=== PATIENT | female | born 1990 | race Hispanic/Latino ===

== ENCOUNTER 2017-05-31 15:32 | Emergency (ER) | payer MEDICARE ==
--- NOTE | 2017-05-31 17:00 | Emergency Department Report ---
HPI - General Chief Complaint: Seizure Time Seen by Provider: 05/31/17 16:42 - HPI HPI: Room 24 The patient is a 26-year-old female presented with the chief complaint seizures. The mother states patient has a history of seizures and cerebral palsy was admitted at [facility] 05/28/2017 through 05/29/2017. The mother states the patient has 6-7 seizures yesterday and then today from 11: 45 through 13:00 patient continued to have seizures. The mother states the patient's seizures consist of her "kicking and biting mixed with episodes of decreased responsiveness." The patient cries out at times and complains of a headache. The patient has a history of cerebral palsy has limited communication but does acknowledge she has a headache. Patient denies any other forms of pain. This morning the mother states patient had an episode of vomiting and one episode of diarrhea. Location: [facility], see above Duration: [See above] Quality: "Seizure" Severity: Moderate Modifying factors: [see above] Context: [see above] Mode of transportation: [not driving] ED Past Medical Hx - Past Medical History Previous Medical History?: Yes Additional medical history: cerebral palsy, seizures - Surgical History Past Surgical History?: No Hx Cholecystectomy: Yes - Family History Family history: no significant - Social History Smoking Status: Never Smoker Substance Use Type: None - Medications Home Medications: Home Medications Medication Instructions Recorded Confirmed Last Taken Type Benztropine [Cogentin] 1 mg PO BID 05/31/17 05/31/17 Unknown History Vortioxetine Hydrobromide 20 mg PO QDAY 05/31/17 05/31/17 Unknown History [Trintellix] Zonisamide (Nf) [Zonegran (Nf)] 400 mg PO QAM 05/31/17 05/31/17 Unknown History Zonisamide (Nf) [Zonegran (Nf)] 500 mg PO QPM 05/31/17 05/31/17 Unknown History clonazePAM [ Klonopin] 0.5 mg PO BID #6 tab 05/31/17 Unknown Rx lamoTRIgine [LaMICtal] 300 mg PO BID 05/31/17 05/31/17 Unknown History ED Review of Systems ROS: Stated complaint: SEIZURE ACTIVITY Other details as noted in HPI Eyes: denies: eye pain ENT: denies: ear pain Cardiovascular: denies: chest pain Gastrointestinal: nausea, vomiting, diarrhea. denies: abdominal pain Genitourinary: denies: dysuria Musculoskeletal: denies: back pain Neurological: headache Physical Exam - Physical Exam Vital Signs: Vital Signs 05/31/17 15:52 Pulse Rate 102 H Respiratory 25 H Rate Blood Pressure 103/60 O2 Sat by Pulse 100 Oximetry Physical Exam: GENERAL: The patient is a well-nourished female lying on stretcher not appearing to be in acute distress HEENT: Normocephalic. Atraumatic. Extraocular motions are intact. Patient has moist mucous membranes. NECK: Trachea midline CHEST/LUNGS: Clear to auscultation. There is no respiratory distress noted. HEART/CARDIOVASCULAR: Regular. There is no tachycardia. There is no gallop rub or murmur. ABDOMEN: Abdomen is soft, nontender. Patient has normal bowel sounds. There is no abdominal distention. SKIN: There is no rash. There is no edema. There is no diaphoresis. NEURO: The patient is awake and alert. The patient is cooperative. Cranial nerves II through XII grossly intact. MUSCULOSKELETAL: There is no evidence of acute injury. ED Course Vital Signs 05/31/17 15:52 Pulse Rate 102 H Respiratory 25 H Rate Blood Pressure 103/60 O2 Sat by Pulse 100 Oximetry - Consultations Consultation #1: 05/31/17 18:05 Dr. Gan paged 05/31/17 20:19 No call back [address] Dr[address] Gan Consultation #2: 05/31/17 20:[address] Lind (patient's neuropsychiatrist)-recommends checking a Zonisamide level and he or the patient's neurologist will follow-up with the results. Recommends given Klonopin every 8 hours for 3 days. ED Medical Decision Making - Lab Data Result diagrams: 05/31/17 16:19 05/31/17 16:19 Laboratory Tests 05/31/17 05/31/17 05/31/17 16:19 16:19 16:19 WBC 8.7 RBC 4.18 Hgb 13.5 Hct 40.1 MCV 96 MCH 32 MCHC 34 RDW 13.1 L Plt Count 288 Lymph % (Auto) 32.0 [place] % (Auto) 5.3 Eos % (Auto) 3.3 Baso % (Auto) 0.5 Lymph # 2.8 [place] # 0.5 Eos # 0.3 Baso # 0.0 Seg Neutrophils % 58.9 Seg Neutrophils # 5.1 Sodium 140 Potassium 3.8 Chloride 106.1 Carbon Dioxide 19 L Anion Gap 19 BUN 13 Creatinine 0.5 L Estimated GFR > 60 BUN/Creatinine Ratio 26 Glucose 101 H Calcium 8.8 Magnesium Total Bilirubin 0.20 Direct Bilirubin < 0.2 Indirect Bilirubin 0.0 AST 19 ALT 20 Alkaline Phosphatase 94 Total Creatine Kinase 53 Total Protein 6.2 L Albumin 4.4 Albumin/Globulin Ratio 2.4 05/31/17 16:19 WBC RBC Hgb Hct MCV MCH MCHC RDW Plt Count Lymph % (Auto) [place] % (Auto) Eos % (Auto) Baso % (Auto) Lymph # [place] # Eos # Baso # Seg Neutrophils % Seg Neutrophils # Sodium Potassium Chloride Carbon Dioxide Anion Gap BUN Creatinine Estimated GFR BUN/Creatinine Ratio Glucose Calcium Magnesium 2.00 Total Bilirubin Direct Bilirubin Indirect Bilirubin AST ALT Alkaline Phosphatase Total Creatine Kinase Total Protein Albumin Albumin/Globulin Ratio - EKG Data -: EKG Interpreted by Dc EKG shows normal: sinus rhythm Rate: normal - EKG Data When compared to previous EKG there are: previous EKG unavailable Interpretation: other (no ischemic changes seen) - Radiology Data Radiology results: report reviewed (CT head), image reviewed (CT head) FINAL REPORT EXAM: CT HEAD/BRAIN WO CON HISTORY: repeated seizures per mother, headache TECHNIQUE: Standard unenhanced CT of the head at 5.0 millimeter axial increments PRIORS: None. FINDINGS: The ventricular system is normal in size and configuration. There is no evidence for parenchymal volume loss. There is no evidence for mass lesion, mass effect, midline shift, acute intracranial hemorrhage, or acute ischemia/ infarction. Visualized paranasal sinuses are clear. IMPRESSION: Negative CT of the head. No acute intracranial process noted. Transcribed By: [facility] Dictated By: LESLIE MCKAY MD Electronically Authenticated By: LESLIE MCKAY MD Signed Date/Time: 05/31/171350 DD/ 50 TD/TT: 05/31/17 135 - Differential Diagnosis cerebral palsy, seizures Critical care attestation.: If time is entered above; I have spent that time in minutes in the direct care of this critically ill patient, excluding procedure time. ED Disposition Clinical Impression: Seizure Disposition: [id number] TO HOME OR SELFCARE Is pt being admited?: No Does the pt Need Aspirin: No Condition: Stable Instructions: Epilepsy (ED) Additional Instructions: Return to the emergency department immediately should you develop worsening symptoms, fever, inability to tolerate food or liquid or any other concerns. Prescriptions: clonazePAM [ Klonopin] 0.5 mg PO BID #6 tab Referrals: PRIMARY CARE, [Primary Care Provider] - 3-5 Days LULU LEUNG MD [Staff Physician] - [facility] Time of Disposition: 20:23
[2017-05-31 17:13] LABS: Basophils % (Auto) 0.5 % (0.0-1.8); Eosinophils % (Auto) 3.3 % (0.0-4.3); Hematocrit 40.1 % (30.3-42.9); Hemoglobin 13.5 gm/dl (10.1-14.3); Mean Corpuscular HGB Conc 34 % (30-34); Mean Corpuscular Hemoglobin 32 pg (28-32); Mean Corpuscular Volume 96 fl (79-97); Platelet Count 288 K/mm3 (140-440); Red Blood Count 4.18 M/mm3 (3.65-5.03); Red Cell Distribution Width 13.1 % (13.2-15.2); White Blood Count 8.7 K/mm3 (4.5-11.0)
[2017-05-31 17:15] LABS: Alanine Aminotransferase 20 units/L (7-56); Albumin 4.4 g/dL (3.9-5); Albumin/Globulin Ratio 2.4 %; Alkaline Phosphatase 94 units/L (35-129); Anion Gap 19 mmol/L; BUN/Creatinine Ratio 26; Blood Urea Nitrogen 13 mg/dL (7-17); Calcium 8.8 mg/dL (8.4-10.2); Carbon Dioxide 19 mmol/L (22-30); Chloride 106.1 mmol/L (98-107); Glucose 101 mg/dL (65-100); Potassium 3.8 mmol/L (3.6-5.0); Sodium 140 mmol/L (137-145); Total Protein 6.2 g/dL (6.3-8.2)
[2017-05-31 17:17] LABS: Bilirubin,Direct < 0.2 mg/dL (0-0.2)
--- NOTE | 2017-05-31 17:54 | Cat Scan Report ---
FINAL REPORT EXAM: CT HEAD/BRAIN WO CON HISTORY: repeated seizures per mother, headache TECHNIQUE: Standard unenhanced CT of the head at 5.0 millimeter axial increments PRIORS: None. FINDINGS: The ventricular system is normal in size and configuration. There is no evidence for parenchymal volume loss. There is no evidence for mass lesion, mass effect, midline shift, acute intracranial hemorrhage, or acute ischemia/ infarction. Visualized paranasal sinuses are clear. IMPRESSION: Negative CT of the head. No acute intracranial process noted.
[2017-05-31 18:29] LABS: Bacteria,Urine 1+ /HPF (Negative); Bilirubin,Urine NEG (Negative); Blood,Urine NEG (Negative); Ketones,Urine NEG (Negative); Leukocyte Esterase,Urine TR (Negative); Mucus,Urine FEW /HPF; Nitrite,Urine NEG (Negative); Protein,Urine <15 mg/dL mg/dL (Negative); Urobilinogen,Urine < 2.0 mg/dL (<2.0)
[2017-05-31] MEDS ORDERED: ATIVAN IV ONE ×2 (19:07→21:05)
[2017-05-31 21:13] VITALS: BP 105/66
== END 2017-05-31 21:46 | disposition home or self-care (01) ==
LOC: ED 15:32
DX: R56.9 Unspecified convulsions (principal); R51 Headache
CPT/HCPCS: 36415; 70450; 80048; 80074; 80203; 81001; 82550; 83735; 85025; 93005; 93010; 96374; 96376; 99284; J2060